=== PATIENT | male | born 1950 | race Caucasian/White ===

== ENCOUNTER → 2023-05-30 | Outpatient (REF) | payer MEDICARE, SELFPAY | LOC: DHSLP | PROVIDERS: ATTENDING PHYSICIAN Internal Medicine Cardiovascular Disease; FAMILY PHYSICIAN Family Medicine | DX: G47.33 Obstructive sleep apnea (adult) (pediatric) (principal) | CPT/HCPCS: 95800 ==

== ENCOUNTER 2024-03-12 06:31 | Day surgery (SDC) | payer MEDICARE, SELFPAY ==
[2024-03-12 06:15] VITALS: BMI 32.1
[2024-03-12 06:20] VITALS: BP 158/92
[2024-03-12 06:34] VITALS: BMI 32.1
[2024-03-12] MEDS: TYLENOL 1000 MG PO (06:41)
[2024-03-12] MEDS: NORMOSOL-R/PLASMALYTE-A 1000 IV (06:41)
[2024-03-12 08:21] VITALS: BP 134/75
[2024-03-12 08:30] VITALS: BP 129/78
[2024-03-12 08:45] VITALS: BP 139/78
[2024-03-12] MEDS: ROXICODONE 5 MG PO (08:55)
[2024-03-12 09:00] VITALS: BP 131/76
== END 2024-03-12 09:30 | disposition home or self-care (01) ==
LOC: SDS 06:31
PROVIDERS: ATTENDING PHYSICIAN Surgery
PROC: 0D8R3ZZ Division of Anal Sphincter, Percutaneous Approach (ICD-10-PCS; 2024-03-12)
DX: K60.1 Chronic anal fissure (principal)
CPT/HCPCS: 46200

== ENCOUNTER → 2024-11-04 14:10 | Outpatient (REF) | payer MEDICARE, SELFPAY ==
[2024-11-04 15:10] LABS: Hematocrit 39.9 % (39.0-52.0); Hemoglobin 13.3 g/dL (13.0-18.0); Mean Corp Hgb Conc. 33.3 g/dL (33.0-37.0); Mean Corpuscular Volume 91.7 fL (80.0-94.0); Nucleated Red Blood Cells % 0 % (-); Red Cell Dist. Width 13.6 % (11.5-14.5)
[2024-11-04 15:11] LABS: INR 1.07; PT 14.2 Sec (11.4-14.6)
[2024-11-04 15:12] LABS: APTT 28.6 Sec (23.4-35.0)
[2024-11-04 15:57] LABS: ALT (SGPT) 32 U/L (0-50); AST (SGOT) 27 U/L (17-59); Albumin 4.0 g/dl (3.5-5.0); Alkaline Phosphatase 70 U/L (38-126); Blood Urea Nitrogen 24 mg/dl (9-20); Calcium 9.0 mg/dl (8.4-10.2); Carbon Dioxide 26 mmol/L (22-30); Chloride 105 mmol/L (98-107); Glucose 86 mg/dl (70-99); Potassium 4.7 mmol/L (3.5-5.1); Sodium 137 mmol/L (135-145); Total Protein 7.4 g/dl (6.3-8.2)
[2024-11-04 16:05] LABS: eGFR 42.04
== END ==
LOC: REG 14:10
PROVIDERS: ATTENDING PHYSICIAN Otolaryngology; FAMILY PHYSICIAN Family Medicine; OTHER PHYSICIAN Internal Medicine Cardiovascular Disease
DX: G47.33 Obstructive sleep apnea (adult) (pediatric) (principal); Z68.34 Body mass index [BMI] 34.0-34.9, adult; Z79.01 Long term (current) use of anticoagulants
CPT/HCPCS: 36415; 80053; 85025; 85610; 85730; 93005

== ENCOUNTER 2025-01-16 06:10 | Day surgery (SDC) | payer MEDICARE, SELFPAY ==
[2025-01-16 12:44] VITALS: BMI 33.9
[2025-01-16 12:45] VITALS: BMI 33.9
[2025-01-16 12:49] VITALS: BP 142/89
== END 2025-01-16 13:01 | disposition home or self-care (01) ==
LOC: SDS 06:10
PROVIDERS: ATTENDING PHYSICIAN Otolaryngology
DX: G47.33 Obstructive sleep apnea (adult) (pediatric) (principal); I48.91 Unspecified atrial fibrillation; I25.2 Old myocardial infarction; I25.10 Atherosclerotic heart disease of native coronary artery without angina pectoris; Z87.891 Personal history of nicotine dependence; Z79.01 Long term (current) use of anticoagulants
CPT/HCPCS: 42975